=== PATIENT | female | born 1975 | race Caucasian/White ===

== ENCOUNTER 2021-05-10 14:37 | Emergency (ER) | payer OTHER ==
[2021-05-10 15:05] VITALS: O2SAT 98
[2021-05-10] MEDS ORDERED: TORAdol 30 mg Injection IM ONE (15:06)
[2021-05-10] MEDS ORDERED: Augmentin 875-125 Tablet PO ONE (15:06)
[2021-05-10] MEDS ORDERED: Augmentin 875-125 Tablet ONE (15:12)
[2021-05-10] MEDS ORDERED: TORAdol 30 mg Injection ONE (15:12)
[2021-05-10] MEDS ORDERED: BUPIVACAINE 0.5% VIAL IJ STA (15:21)
[2021-05-10 15:38] VITALS: PULSE 70
--- NOTE | 2021-05-10 15:41 | ERPHSYRPT ---
- History of Present Illness Time Seen by Provider: 05/10/21 15:20 Source: patient Exam Limitations: no limitations Patient Subjective Stated Complaint: Pt states "I have a toothache. It started last week but the past couple of days I have not gotten any sleep and I have an appointment with a dentist tomorrow but I cannot wait anymore. It hurts so bad." Triage Nursing Assessment: Pt presented alert and oriented X 3, skin pwd Pt ambulates with an upright steady gait, able to speak in clear full sentences. pt in no apparent respiratory distress. Physician History: Patient is a 46-year-old female presents to our ED with complaints of pain to tooth #16 left posterior molar. Pain started approximately 1 week ago. Pain worse over the past couple days. Patient states she is unable to sleep due to pain. Patient has not eaten due to pain. No nausea or vomiting. No fever. No severe headache. Pain reproduced with percussion and mastication to the left side. Pain is well localized. No radiation. Pain described as an ache. Patient currently has an appointment scheduled with a dentist for tomorrow. Patient states that she cannot wait for pain relief. Patient is otherwise healthy. She voices no other complaints or concerns at this time. Timing/Duration: today Severity: moderate Modifying Factors: Improves With: eating Associated Symptoms: denies symptoms Allergies/Adverse Reactions: No Known Drug Allergies Allergy (Verified 05/10/21 15:04) Hx Tetanus, Diphtheria Vaccination/Date Given: No Hx Influenza Vaccination/Date Given: No Hx Pneumococcal Vaccination/Date Given: No Immunizations Up to Date: Yes Travel Risk - International Travel Have you traveled outside of the country in past 3 weeks: No - Coronavirus Screening Are you exhibiting any of the following symptoms?: No Close contact with a COVID-19 positive Pt in past 14-21 Days: No - Vaccine Status Have you recieved a Covid-19 vaccination: No - Review of Systems Constitutional: No Symptoms, No Fever, No Chills Eyes: No Symptoms Ears, Nose, & Throat: No Symptoms Respiratory: No Symptoms, No Cough, No Dyspnea Cardiac: No Symptoms, No Chest Pain, No Edema, No Syncope Abdominal/Gastrointestinal: No Symptoms, No Abdominal Pain, No Nausea, No Vomiting, No Diarrhea Genitourinary Symptoms: No Symptoms, No Dysuria Musculoskeletal: No Symptoms, No Back Pain, No Neck Pain Skin: No Symptoms, No Rash Neurological: No Symptoms, No Dizziness, No Focal Weakness, No Sensory Changes Psychological: No Symptoms Endocrine: No Symptoms Hematologic/Lymphatic: No Symptoms Immunological/Allergic: No Symptoms All Other Systems: Reviewed and Negative - Past Medical History Pertinent Past Medical History: Yes Cardiac History: Hypertension - Past Surgical History Past Surgical History: No - Social History Smoking Status: Current every day smoker How long have you smoked: 0.5 p Exposure to second hand smoke: Yes Drug Use: none Patient Lives Alone: No - Female History Hx Now: No - Nursing Vital Signs Nursing Vital Signs: Initial Vital Signs Temperature 97.2 F 05/10/21 14:58 Pulse Rate 74 05/10/21 14:58 Respiratory Rate 22 05/10/21 14:58 Blood Pressure 199/93 05/10/21 14:58 O2 Sat by Pulse Oximetry 98 05/10/21 14:58 Pain Scale Pain Intensity 10 - Physical Exam General Appearance: no apparent distress, alert Eye Exam: PERRL/EOMI, eyes nml inspection Ears, Nose, Throat Exam: normal ENT inspection, TMs normal, pharynx normal, moist mucous membranes, other (Swelling and tenderness over left posterior superior molar. Findings are consistent with a dental abscess. The tooth is carious as well.) Neck Exam: normal inspection, non-tender, supple, full range of motion Respiratory Exam: normal breath sounds, lungs clear, No respiratory distress Cardiovascular Exam: regular rate/rhythm, normal heart sounds, normal peripheral pulses Gastrointestinal/Abdomen Exam: soft, normal bowel sounds, No tenderness, No mass Back Exam: normal inspection, normal range of motion, No CVA tenderness, No vertebral tenderness Extremity Exam: normal inspection, normal range of motion, pelvis stable Neurologic Exam: alert, oriented x 3, cooperative, normal mood/affect, sensation nml, No motor deficits Skin Exam: normal color, warm, dry, No rash Lymphatic Exam: No adenopathy SpO2 Interpretation: normal SpO2: 98 O2 Delivery: Room Air Procedures - Nerve Block Time of Procedure: 15:30 Prepped with: Alcohol wipe Anesthesia: marcaine 0.5% Volume Anesthetic (ccs): 1 Needle & Syringe: 23-gauge needle. Progress: No complications. Patient experienced immediate relief. - Course Nursing assessment & vital signs reviewed: Yes Ordered Tests: Medication Summary Discontinued Medications Generic Name Dose Route Start Last Admin Trade Name Freq PRN Reason Stop Dose Admin Amoxicillin/Clavulanate Potassium 875 mg 05/10/21 15:06 05/10/21 15:13 Augmentin 875-125 Tablet PO 05/10/21 15:07 875 mg STAT ONE Administration Amoxicillin/Clavulanate Potassium Confirm 05/10/21 15:12 Augmentin 875-125 Tablet Administered 05/10/21 15:13 Dose 875 mg .ROUTE .STK-MED ONE Bupivacaine HCl 1 mg 05/10/21 15:21 05/10/21 15:25 Bupivacaine 0.5% Vial IJ 05/10/21 15:22 1 mg ONCE STA Administration Ketorolac Tromethamine 30 mg 05/10/21 15:06 05/10/21 15:14 Toradol 30 Mg Injection IM 05/10/21 15:07 30 mg STAT ONE Administration Ketorolac Tromethamine Confirm 05/10/21 15:12 Toradol 30 Mg Injection Administered 05/10/21 15:13 Dose 30 mg .ROUTE .STK-MED ONE - Progress Progress: improved Progress Note: Patient has a carious tooth as well as a dental abscess. Patient received a dose of Augmentin in our ED. Patient also received a dose of Toradol and a nerve block. Patient currently has an appointment scheduled with a dentist tomorrow. Patient states is ready for discharge. Will discharge home. We will forward a prescription of Augmentin to patient's pharmacy. Toradol prescription will be forwarded as well. 05/10/21 15:42 Counseled pt/family regarding: diagnosis, need for follow-up - Departure Departure Disposition: Home Clinical Impression: Pain, dental, Tooth caries, Dental abscess Condition: Stable Critical Care Time: No Referrals: GERARD MONROE MD [Primary Care Provider] - Additional Instructions: Discharge/Care Plan MELBA RUSSO was seen on 05/10/21 in the Emergency Room. The patient was counseled regarding Diagnosis,Lab results, Imaging studies, need for follow up and when to return to the Emergency Room. Prescriptions given: Discharge Note I have spoken with the patient and/or caregivers. I have explained the patient's condition, diagnosis and treatment plan based on the information available to me at this time. I have answered the patient's and/or caregiver's questions and addressed any concerns. The patient and/or caregivers have as good understanding of the patient's diagnosis, condition and treatment plan as can be expected at this point. The vital signs have been stable. The patient's condition is stable and appropriate for discharge from the emergency department. The patient will pursue further outpatient evaluation with the primary care physician or other designated or consulting physician as outlined in the discharge instructions. The patient and/or caregivers are agreeable to this plan of care and follow-up instructions have been explained in detail. The patient and/or caregivers have received these instruction. The patient/and or caregivers are aware that any significant change in condition or worsening of symptoms should prompt an immediate return to this or the closest emergency department or call 911. Prescriptions: Amox Tr/Potass Clav. 875 mg [Augmentin 875-125 Tablet] 1 each PO BID 7 Days #14 tablet Ketorolac Tromethamine [Toradol] 10 mg PO TID 5 Days #15 tablet
[2021-05-10 16:20] VITALS: BP 168/70
== END 2021-05-10 16:20 | disposition home or self-care (01) ==
LOC: ED 14:37
DX: K04.7 Periapical abscess without sinus (principal); K08.89 Other specified disorders of teeth and supporting structures; K02.9 Dental caries, unspecified
CPT/HCPCS: 64450; 96372; 99284; J1885; A9270-GY

== ENCOUNTER 2023-07-04 09:29 | Day surgery (SDC) | payer OTHER ==
--- NOTE | 2023-07-02 11:35 | HP ---
DATE: 07/04/2023 HISTORY OF PRESENT ILLNESS: Patient is a 48 year-old female who presents with complaints of right upper quadrant pain radiating to the shoulder, deep and cramping. She reports eating makes this worse. She states that the pain has flared up more here lately. She has nausea and some vomiting. She reports that fried food is making this pain worse for her. She does also have some diarrhea. PAST MEDICAL HISTORY: Hypertension. CURRENT MEDICATIONS: Lisinopril. ALLERGIES: NONE. PAST SURGERIES: Lymph node biopsy. SOCIAL HISTORY: Current every day smoker, occasional alcohol. FAMILY HISTORY: Breast cancer, pancreatic cancer. REVIEW OF SYSTEMS: CONSTITUTIONAL: Denies fever or chills. CHEST: Denies shortness of breath. CVS: Denies chest pain. ABDOMEN: Reports right upper quadrant pain. PHYSICAL EXAMINATION: GENERAL: No acute distress. CHEST: Nonlabored. No shortness of breath. CVS: Regular rate and rhythm. ABDOMEN: Soft. Tender in the right upper quadrant. IMPRESSION: 1. GALLBLADDER SLUDGE. PLAN: Laparoscopic cholecystectomy with Dr. Mark. Matthew. This report was dictated for Dr. Matthew by Elizabeth Delgado NP.
[~2023-07-04 09:29] MED LIST: Lactated Ringers 1,000 ML IV ONE; MEFOXIN 2 GM PREMIX** 2 GM/50 ML ML IV ONE
[2023-07-04] MEDS: Lactated Ringers 1,000 ML IV SCH (09:39)
[2023-07-04] MEDS: MEFOXIN 2 GM PREMIX** 2 GM/50 ML ML IV ONE (09:40)
[2023-07-04 09:52] VITALS: RESP 16; TEMP 98
[2023-07-04 10:11] LABS: Absolute Neutrophil Ct (ANC) 6.43 x10^3/uL (1.4-6.9); BASOPHIL % 0.5 % (0.0-0.4); Basophil (Absolute #) 0.05 x10^3/uL (0-0.4); Eosinophil % 1.8 % (0.00-5.0); Eosinophil (Absolute #) 0.19 x10^3/uL (0-0.5); Hematocrit 42.8 % (35-47); Hemoglobin 14.3 g/dL (12.0-16.0); IMMATURE GRAN # 0.03 x10^3u/L (0.00-0.03); IMMATURE GRAN % 0.3 % (0.00-0.4); Lymphocyte (Absolute #) 3.37 x10^3/uL (1.0-4.6); Lymphocytes % 31.5 % (24.0-44.0); Mean Corpuscular Hemoglobin 30.8 pg (26-32); Mean Corpuscular Hgb Concent. 33.4 g/dL (32-36); Mean Platelet Volume 9.5 fL (7.5-11.0); Monocyte (Absolute #) 0.64 x10^3/uL (0.0-1.3); Neutrophil % 59.9 % (36.0-66.0); Platelet Count 426 x10^3/uL (150-450); Red Blood Count 4.65 x10^6/uL (4.1-5.4); Red Cell Distribution Width 12.5 % (11.5-14.0); White Blood Count 10.7 x10^3/uL (4.0-10.5)
[2023-07-04 10:16] LABS: HCG URINE TEST NEGATIVE (NEGATIVE)
[2023-07-04 10:17] LABS: ALBUMIN 4.7 g/dL (3.5-5.0); ALKALINE PHOSPHATASE 91 U/L (38-126); ANION GAP 15.1 MEQ/L (5-15); BLOOD UREA NITROGEN 12 mg/dL (7-17); CHLORIDE 103 mmol/L (98-107); Calcium 9.4 mg/dL (8.4-10.2); Carbon Dioxide 30 mmol/L (22-30); Creatinine 1 0.69 mg/dL (0.52-1.04); EST GLOMERULAR FILTRATION RATE > 60.0 ML/MIN; Glucose 100 mg/dL (74-106); Potassium 3.9 mmol/L (3.5-5.1); SGOT/AST 27 U/L (14-36); SGPT/ALT 38 U/L (0-35); SODIUM 144 mmol/L (137-145); Total Protein 8.1 g/dL (6.3-8.2)
[2023-07-04] MEDS ORDERED: DIPRIVAN 200 MG/20 ML IV ONE (11:18)
[2023-07-04] MEDS ORDERED: SUBLIMAZE 100 MCG/2 ML ONE ×2 (11:19→13:37)
[2023-07-04] MEDS ORDERED: Zemuron 100 MG/10 ML ONE (11:19)
[2023-07-04] MEDS ORDERED: Decadron 4 MG INJ ONE (11:19)
[2023-07-04] MEDS ORDERED: Xylocaine-Mpf 2% 5 Ml Vial ONE (11:19)
[2023-07-04] MEDS ORDERED: Zofran 4 MG/2 ML VIAL ONE ×2 (11:19→13:31)
[2023-07-04] MEDS ORDERED: Pre-Attached Lta Kit TP ONE (11:27)
[2023-07-04] MEDS ORDERED: OFIRMEV 100 ML IV ONE (11:28)
[2023-07-04] MEDS ORDERED: Sensorcaine 0.25% 10 ML ONE (11:31)
[2023-07-04] MEDS ORDERED: Versed 2 MG/2 ML Injection ONE (12:08)
[2023-07-04] MEDS ORDERED: Transderm Scop 1.5MG Patch ONE (12:15)
[2023-07-04] MEDS ORDERED: DEXMEDETOMIDINE 80 MCG/20ML-NS IV ONE (12:24)
[2023-07-04] MEDS ORDERED: Ephedrine Sulfate 50 MG/ML ONE (12:44)
[2023-07-04] MEDS ORDERED: BRIDION 200MG/2ML IV ONE ×2 (12:48→12:49)
[2023-07-04] MEDS ORDERED: Lactated Ringers 1,000 ML IV ONE (12:52)
--- NOTE | 2023-07-04 13:55 | OP ---
SURGERY DATE: 07/04/2023 SURGERY TIME: 1208 PREOPERATIVE DIAGNOSIS: 1. SYMPTOMATIC CHOLECYSTITIS. POSTOPERATIVE DIAGNOSIS: 1. CHOLECYSTITIS WITH CHOLESTEROLOSIS. PROCEDURE: 1. Laparoscopic cholecystectomy. SURGEON: Emigdio Matthew M.D. ANESTHESIA: General endotracheal tube. COMPLICATIONS: None. CONDITION: Stable. OPERATIVE PROCEDURE: Patient taken to surgery. General anesthetic. Routine prep and drape. Veress needle inserted. Opened to a pressure of 1. Insufflated to a pressure of 14. Four 5's. Good visualization. Cystic duct defined. Cystic artery defined. Both structures triply Ligaclipped and transected. Clips totally cross wall approximated. Gallbladder rolled out of gallbladder fossa. Gallbladder delivered through the epigastric port. Field was clean and dry. Right upper quadrant satisfactory. Left upper quadrant satisfactory. Lower abdominal area satisfactory. Port sites closed with 0 Vicryl. CO2 was exsufflated. Skin closed with 4-0 Vicryl. Steri-strips applied. Sterile dressing applied. Patient tolerated the procedure satisfactory.
[2023-07-04 15:04] VITALS: BP 126/78; PULSE 58; O2SAT 95
== END 2023-07-04 15:20 | disposition home or self-care (01) ==
LOC: SDC 09:29
PROVIDERS: ATTEND Surgery
DX: K82.4 Cholesterolosis of gallbladder (principal); Z80.3 Family history of malignant neoplasm of breast; Z80.8 Family history of malignant neoplasm of other organs or systems
CPT/HCPCS: 36415; 80053; 81025; 85025; J0694; J1100; J2250; J2405; J2704; J3010; A9270-GY